=== PATIENT | female | born 2000 | race Caucasian/White ===

== ENCOUNTER 2024-06-26 07:18 | Day surgery (SDC) | payer BC ==
[2024-06-25 12:41] VITALS: BMI 43.2
[2024-06-26] MEDS ORDERED: PROPOFOL 20 ML ONE (08:28)
[2024-06-26] MEDS ORDERED: fentaNYL 50 mcg/mL 1 mL Vial ONE ×4 (08:28→11:24)
[2024-06-26] MEDS ORDERED: Dexamethasone 4 mg/ml Vial ONE (08:29)
[2024-06-26] MEDS ORDERED: Lidocaine 1% PF 5 ML VIAL ONE (08:29)
[2024-06-26] MEDS ORDERED: Ondansetron PF 4 MG/2 ML Vial ONE (08:29)
[2024-06-26] MEDS ORDERED: Bacitracin Zinc Ointment 30 gm TUBE ONE (08:35)
[2024-06-26] MEDS ORDERED: Bupivacaine PF 0.5% 30 ML VIAL ONE (08:35)
[2024-06-26] MEDS ORDERED: CEFAZOLIN 2 GM VIAL ONE (08:46)
[2024-06-26] MEDS ORDERED: EPINEPHrine 1 MG/ML VIAL ONE (09:36)
[2024-06-26] MEDS ORDERED: Betamet Acet/Betamet Na Ph 30 MG/5 ML VIAL ONE (10:26)
[2024-06-26] MEDS ORDERED: Ketorolac Tromethamine 30 MG (1 mL) VIAL ONE (11:03)
[2024-06-26] MEDS ORDERED: HYDROcodone/Acetaminophen 5/325 mg Tablet ONE (13:35)
== END 2024-06-26 14:23 | disposition home or self-care (01) ==
LOC: SDC 07:18
PROVIDERS: ATTEND Orthopaedic Surgery Hand Surgery
PROC: 00B Central Nervous System and Cranial Nerves, Excision (ICD-10-PCS; principal; 2024-06-26)
PROC: 0RBP4ZZ Excision of Left Wrist Joint, Percutaneous Endoscopic Approach (ICD-10-PCS; principal; 2024-06-26)
DX: M67.432 Ganglion, left wrist (principal); S63.592A Other specified sprain of left wrist, initial encounter; E11.9 Type 2 diabetes mellitus without complications; E03.9 Hypothyroidism, unspecified; F41.9 Anxiety disorder, unspecified; F32.A Depression, unspecified; Z91.018 Allergy to other foods; X58.XXXA Exposure to other specified factors, initial encounter
CPT/HCPCS: A6223; J0171; J0665; J0702; J1100; J1885; J2405; J2704; J3010